=== PATIENT | female | born 1970 | race Caucasian/White ===

== ENCOUNTER 2020-11-13 09:58 | Emergency (ER) | payer OTHER ==
[~2020-11-13] VITALS: Ht 165.1 cm; Wt 95.2 kg
[2020-11-13] MEDS ORDERED: ONDA4ODT MM (14:35)
== END 2020-11-13 14:48 | disposition home or self-care (01) ==
LOC: ER 09:58
DX: U07.1 COVID-19 (principal)
CPT/HCPCS: 99284-25; M0243; Q0243